=== PATIENT | female | born 1960 | race Caucasian/White ===

== ENCOUNTER → 2016-04-03 | Outpatient (CLI) | payer OTHER ==
[2016-01-02 10:07] VITALS: BP 143/63
[~2016-04-03] MED LIST: LISI1TAB3 PO; MELO-150 PO; OMEP20TA63 PO
--- NOTE | 2016-04-03 12:34 | KCIC ---
PROCEDURE Two-view chest HISTORY Cough for 2 weeks, shortness of air COMPARISON November 06, 2014 FINDINGS Two views of the chest are submitted. Heart size is stable. There is no dependent pleural fluid or pneumothorax. On the PA view, there is some questionable increased opacity at the medial right lung base with partially obscured right heart border. IMPRESSION There is suggestion of increased opacity of the medial right lung base with partial obscuration of the right heart border, possible mild infiltrate although radiographic followup after treatment advised. Electronically signed by: Jerry Khoury MD (Apr 03, 2016 12:33:14)
== END | disposition home or self-care (01) ==
LOC: KCIC 09:30
PROVIDERS: ATTEND Physician Assistant Medical
DX: R05 Cough (principal); R06.02 Shortness of breath
CPT/HCPCS: 71020

== ENCOUNTER → 2017-01-01 | Outpatient (CLI) | payer OTHER ==
[2016-01-02 10:07] VITALS: BP 143/63
[~2017-01-01] MED LIST changes: -MELO-150 PO; +MELO15TA23 PO
--- NOTE | 2017-01-01 10:46 | KCIC ---
3 views left hand dated 01/01/2017. No comparison available. Clinical indication: Pain and swelling left thumb. FINDINGS: 3 views left hand show normal bony alignment. No displaced fracture. No acute osseous or articular abnormality. Mild degenerative change of the first carpometacarpal joint and scaphotrapezial joint. Mild degenerative change of the interphalangeal joints throughout. IMPRESSION: No acute radiographic abnormality. Degenerative changes as described above. Electronically signed by: Ric Presley MD (01/01/2017 10:43 AM) [id number]
--- NOTE | 2017-01-01 10:47 | KCIC ---
Five-view lumbar spine dated 01/01/2017. No comparison available. CLINICAL INDICATION: Left leg numbness and back pain for several months. FINDINGS: AP, lateral, bilateral black and coned-down views of lumbosacral junction obtained. 5 nonrib-bearing vertebral levels. Vertebral body and disc heights are maintained. Sagittal alignment is anatomic. No significant endplate hypertrophic changes. There is mild to moderate arthrosis lower lumbar apophyseal joints. No pars defects on the oblique views. IMPRESSION: 1. No acute radiographic abnormality. 2. Mild lower lumbar spondylosis. Electronically signed by: Ric Presley MD (01/01/2017 10:44 AM) [facility]
== END | disposition home or self-care (01) ==
LOC: KCIC 08:35
PROVIDERS: ATTEND Physician Assistant
DX: M47.896 Other spondylosis, lumbar region (principal); M18.9 Osteoarthritis of first carpometacarpal joint, unspecified; M19.042 Primary osteoarthritis, left hand
CPT/HCPCS: 72110; 73130

== ENCOUNTER → 2017-01-08 | Outpatient (CLI) | payer OTHER ==
[2016-01-02 10:07] VITALS: BP 143/63
--- NOTE | 2017-01-08 16:07 | KCIC ---
INDICATION: Thyroid nodule. TECHNIQUE: Thyroid ultrasound was performed. Comparison is from December 19, 2015. FINDINGS: Right thyroid lobe measures 6.7 x 2.2 x 3.7 cm and the left 6.1 x 2.7 x 2.8 cm. The isthmus measures 0.8 cm. Thyroid is heterogeneous in echotexture without increase or decrease in color flow. Echogenic nodule without color flow in the inferior right thyroid lobe measures up to 14 mm in size, probably unchanged allowing for differences in measurement planes. No new nodule is identified. By report, there has been a negative biopsy. IMPRESSION: Stable nodule in the inferior right thyroid. Electronically signed by: Trung Rodrigues MD (01/08/2017 4:04 PM) [facility]
== END | disposition home or self-care (01) ==
LOC: KCIC US 15:33
PROVIDERS: ATTEND Surgery
DX: E04.1 Nontoxic single thyroid nodule (principal)
CPT/HCPCS: 76536

== ENCOUNTER → 2018-02-21 | Outpatient (CLI) | payer OTHER ==
[2016-01-02 10:07] VITALS: BP 143/63
--- NOTE | 2018-02-21 16:46 | KCIC ---
THYROID SONOGRAM Clinical indications: Follow-up of thyroid nodule. COMPARISON: May 16, 2015 and January 08, 2017. FINDINGS: The longitudinal and AP and transverse dimensions of the right lobe of the thyroid gland are 6.0 cm and 2.3 cm and 2.8 cm respectively. The longitudinal and AP and transverse dimensions of the left lobe of the thyroid gland are 5.5 cm and 2.4 cm and 2.7 cm respectively. The right lobe is heterogeneous and there is a hyperechoic nodule within the lower pole measuring 13 mm in size. It is unchanged in size when similar retrospective measurements are made. There is a small cyst within the mid aspect of the right lobe measuring 5 mm. The left lobe is heterogeneous. Findings could reflect thyroiditis. The isthmus is heterogeneous and measures 7 mm in thickness. IMPRESSION: Thyromegaly which may represent thyroiditis. No change in size of benign hyperechoic nodule of the lower pole of the right lobe. Electronically signed by: Davi Gutierrez MD (02/21/2018 4:42 PM) [facility]
== END | disposition home or self-care (01) ==
LOC: KCIC US 14:33
PROVIDERS: ATTEND Surgery
DX: E04.1 Nontoxic single thyroid nodule (principal)
CPT/HCPCS: 76536

== ENCOUNTER → 2018-08-05 | Outpatient (CLI) | payer OTHER ==
[2016-01-02 10:07] VITALS: BP 143/63
--- NOTE | 2018-08-05 08:51 | KCIC ---
Bilateral knees, 6 views, 08/05/2018: HISTORY: Fall, knee pain, swelling There is mild narrowing of the medial compartment of left knee joint with mild marginal spurring. There is minimal marginal spurring on the right. Mild degenerative change is present at both patellofemoral articulations. No acute fracture or dislocation is identified. No significant joint effusion is evident. IMPRESSION: 1. Mild bilateral degenerative changes. 2. No acute bony abnormality is detected. Electronically signed by: Devendra Perez MD (08/05/2018 8:48 AM) [facility]
== END | disposition home or self-care (01) ==
LOC: KCIC 08:17
PROVIDERS: ATTEND Physician Assistant Medical
DX: M17.0 Bilateral primary osteoarthritis of knee (principal); M76.891 Other specified enthesopathies of right lower limb, excluding foot
CPT/HCPCS: 73562

== ENCOUNTER → 2018-10-28 | Outpatient (CLI) | payer OTHER ==
[2016-01-02 10:07] VITALS: BP 143/63
--- NOTE | 2018-10-28 16:00 | KCIC ---
MR of the right knee HISTORY: Right knee pain. Injury August 02, 2018. TECHNIQUE: Routine multiplanar sequences are obtained. FINDINGS: Mild motion degradation on the exam. No evidence of medial meniscal tear. No evidence of lateral meniscal tear. Anterior cruciate ligament and posterior cruciate ligament are intact. Intercondylar notch narrowing due to osteophytes. Medial collateral ligament intact. Iliotibial band unremarkable. Fibular collateral ligament, biceps femoris tendon and popliteus tendon are intact. Extensor mechanism is intact. Trace joint effusion. Severe articular cartilage loss at the patellofemoral joint with broad subchondral bone exposure and small cysts. Overall moderate chondral thinning at the medial compartment, milder degenerative changes of the lateral compartment. No acute fracture or aggressive bone destruction. No significant Terrell's cyst. IMPRESSION: Primary osteoarthritis, most severe at the patellofemoral joint. Electronically signed by: Ric Vargas MD (10/28/2018 3:58 PM) [facility]
== END | disposition home or self-care (01) ==
LOC: KCIC MRI 15:00
PROVIDERS: ATTEND Physician Assistant Medical
DX: M17.11 Unilateral primary osteoarthritis, right knee (principal); M25.761 Osteophyte, right knee; M25.461 Effusion, right knee; M25.861 Other specified joint disorders, right knee; F40.240 Claustrophobia; Z90.710 Acquired absence of both cervix and uterus; Z90.89 Acquired absence of other organs
CPT/HCPCS: 73721

== ENCOUNTER → 2019-11-02 | Outpatient (CLI) | payer OTHER ==
[2016-01-02 10:07] VITALS: BP 143/63
[~2019-11-02] MED LIST changes: +LISI1TAB23 PO; -LISI1TAB3 PO
--- NOTE | 2019-11-02 13:43 | KCIC ---
HAND RIGHT 3V, WRIST 3V RIGHT DATE: 11/02/2019 12:00 AM INDICATION: Reason: RIGHT HAND AND WRIST PAIN / Spl. Instructions: Chronic pain, no recent injury. Pain radiates up arm / History: COMPARISON: None. FINDINGS: Bones: There is no evidence of acute fracture or dislocation. Joints: Severe degenerative changes of the first CMC joint and third DIP joint. Mild degenerative changes of the remaining IP joints. Miscellaneous: None. IMPRESSION: No acute osseous abnormality. Multifocal degenerative changes as above. Electronically signed by: Seferino Looney MD (11/02/2019 1:41 PM) [id number]
== END | disposition home or self-care (01) ==
LOC: KCIC 10:08
PROVIDERS: ATTEND Physician Assistant Medical
DX: M18.11 Unilateral primary osteoarthritis of first carpometacarpal joint, right hand (principal); M19.031 Primary osteoarthritis, right wrist; M19.041 Primary osteoarthritis, right hand
CPT/HCPCS: 73110; 73130